=== PATIENT | female | born 1965 | race Caucasian/White ===

== ENCOUNTER → 2016-06-13 | Outpatient (CLI) | payer OTHER, BC ==
[~2016-06-13] MED LIST: HYDROGESIC 5/501 CAP; KLONOPIN1 MG; TOPROL XL 50 MG50 M1
--- NOTE | ~2016-06-13 | MY11 ---
[facility] A Service of [facility] / [facility] RADIOLOGY TEXT RESULTS PATIENT: BLACK LEES LOCATION: [facility] : 63 UNIT #: [id number] AGE: [address]: Ainsley Benavides MD SEX: F ORDER DR: [id number] [address] [address] [id number] O MR#: [id number] Acc #: [id number] NAME: BLACK LEES : 1965 SEX: F STUDY DATE/TIME: 06/13/2016 8:53 UNIT: [facility] ROOM: STUDY DESCRIPTION: MY Mammogram Screening Dig Eladio Attending Physician: Ainsley Benavides M.D. Referring Physician: Ainsley Benavides M.D. Ordering Physician: Ainsley Benavides M.D. Primary Care Physician: Ainsley Benavides M.D. MEDICAL IMAGING REPORT This report is preliminary unless electronic signature is present. EXAM Digital screening mammogram, 06/13/2016 HISTORY 51-year-old woman positive family history, maternal aunt in her 30s. Annual screening. COMPARISON 06/03/2009, 10/16/2012, 08/22/2014 FINDINGS Digital imaging of each breast was completed utilizing screening protocol. Review includes FDA-approved CAD device. Breast parenchyma is partially fatty replaced and somewhat heterogeneous. Nodular dominance projecting outer hemisphere right breast middle third is stable. I see no interval occurring suspicious mass. There are no suspicious microcalcifications and no architectural deformity. IMPRESSION Stable benign mammogram. Annual screening recommended. Patients over the age of 40 are entered into a reminder system with target due date for the next mammogram. A result letter will also be sent to the patient. BIRADS: 2 Benign Finding Dictated by... Dragan Capellan M.D. THIS IS AN ELECTRONICALLY VERIFIED REPORT Dragan Capellan M.D. at 06/13/2016 12:45 PM [facility] A Service of [facility] / [facility] RADIOLOGY TEXT RESULTS PATIENT: BLACK LEES LOCATION: [facility] : 63 UNIT #: [id number] AGE: [address]: Ainsley Benavides MD SEX: F ORDER DR: KAIA/kendra TD: 06/13/2016 10:27 JOB #: [id number] MEDICAL IMAGING REPORT Page 1 of 1
== END | disposition home or self-care (01) ==
LOC: SMAM 08:19
DX: Z12.31 Encounter for screening mammogram for malignant neoplasm of breast (principal); Z80.3 Family history of malignant neoplasm of breast
CPT/HCPCS: G0202